=== PATIENT | female | born 1985 | race Asian ===

== ENCOUNTER 2020-02-07 15:29 | Emergency (ER) | payer BC, OTHER ==
--- NOTE | 2020-02-07 16:17 | TELE ---
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 Patient reports she has no symptoms herself. Denies fever, chills, shortness of breath, chest pain. Denies any other symptoms Review of Systems - Review of Systems Able to Perform ROS?: Yes Limited Turkmen proficient: No Constitutional: No: Chills, Fever, Malaise HEENTM: No: Symptoms Reported, See HPI, Eye Pain, Blurred Vision, Tearing, Recent change in vision, Double Vision, Cataracts, Ear Pain, Ocular Prothesis, Ear Discharge, Nose Pain, Nose Congestion, Tinnitus, Nose Bleeding, Hearing Loss, Throat Pain, Throat Swelling, Mouth Pain, Dental Problems, Difficulty Swallowing, Mouth Swelling, Other Respiratory: No: Symptoms reported, See HPI, Cough, Orthopnea, Shortness of B reath, SOB with Exertion, SOB at Rest, Stridor, Wheezing, Productive cough, Hemoptysis, Other Cardiac (ROS): No: Symptoms Reported, See HPI, Chest Pain, Edema, Irregular Heart Rate, Lightheadedness, Palpitations, Syncope, Chest Tightness, Other ABD/GI: No: Symptoms Reported, Nausea, Vomiting Integumentary: No: Symptoms Reported Neurological: No: Symptoms reported, Headache, Dizziness All Other Systems: Reviewed and Negative *Physical Exam - Physical Exam General Appearance: Yes: Nourished, Appropriately Dressed. 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 Patient reports she has no symptoms herself. Denies fever, chills, shortness of breath, chest pain. Denies any other symptoms Patient asymptomatic at this time and afebrile. Discussed self quarantine instructions with patient until negative COVID test. COVID test ordered as per patient request. Patient advised to go to [facility] for testing and patient will go [facility] for testing. Patient stable for discharge Discharge Diagnosis at time of Disposition: Encounter by telehealth for suspected COVID-19 - Referrals Follow-up Referral(s): Susan Tubbs MD [Primary Care Provider] - - Patient Instructions Discharge Instructions: [facility]-Coronavirus Instructions, [facility] COVID-19 Isolation Protocol - Discharge Disposition: HOME Condition at time of Disposition: Stable
== END 2020-02-07 16:17 | disposition home or self-care (01) ==
LOC: JVIRT 15:29
DX: Z03.818 Encounter for observation for suspected exposure to other biological agents ruled out (principal)
CPT/HCPCS: Q3014-GT; U0003

== ENCOUNTER 2021-07-20 18:34 | Emergency (ER) | payer BC, OTHER ==
[2021-07-20 18:57] VITALS: BP 131/72; PULSE 63; TEMP 98.7; BMI 18.3
== END 2021-07-20 19:27 | disposition home or self-care (01) ==
LOC: FER 18:34
DX: Z46.4 Encounter for fitting and adjustment of orthodontic device (principal)
CPT/HCPCS: 99281-25